=== PATIENT | female | born 1940 | race Caucasian/White ===

== ENCOUNTER → 2018-01-04 | Outpatient (CLI) | payer OTHER ==
[~2018-01-04] MED LIST: ASPI-1005 PO; ASPI-1197 PO; ATOR20TA65 PO; BIOTIN PO; CHOL200016 PO; CHOL400T33 PO; CILO100T PO; CINN500C PO; CLOP75TA14 PO; FISH1CAP27 PO; FOLI-74 PO; GARL5000 PO; GLIM2TAB3 PO; LEVO25TA54 PO; LISI-617 PO; METO-408 PO; RANO500T2 PO; REGADENOSON 0.4 MG/5 ML PF SYG IVP SCH; SIMV20TA6 PO; VITA150T PO
== END | disposition home or self-care (01) ==
LOC: SHCH 08:47
PROVIDERS: ATTEND Internal Medicine Cardiovascular Disease
DX: I51.0 Cardiac septal defect, acquired (principal); I10 Essential (primary) hypertension; R01.1 Cardiac murmur, unspecified
CPT/HCPCS: 78452; 93017; 96374; A9500 ×2; J2785

== ENCOUNTER → 2018-01-10 | Outpatient (CLI) | payer OTHER ==
[~2018-01-10] MED LIST changes: -REGADENOSON 0.4 MG/5 ML PF SYG IVP SCH
== END | disposition home or self-care (01) ==
LOC: SHCH 09:23
PROVIDERS: ATTEND Internal Medicine Cardiovascular Disease
DX: I25.10 Atherosclerotic heart disease of native coronary artery without angina pectoris (principal); I10 Essential (primary) hypertension; Z95.1 Presence of aortocoronary bypass graft
CPT/HCPCS: 93306

== ENCOUNTER → 2018-02-13 | Outpatient (CLI) | payer OTHER ==
[~2018-02-13] MED LIST changes: +ISOVUE-370 50ML VIAL IV ONE
== END | disposition home or self-care (01) ==
LOC: RAH 12:18
PROVIDERS: ATTEND Internal Medicine
DX: H49.22 Sixth [abducent] nerve palsy, left eye (principal)
CPT/HCPCS: 70470; Q9967

== ENCOUNTER 2018-03-01 05:44 | Observation (INO) | payer OTHER ==
[2018-02-27 11:40] VITALS: BP 183/84
[2018-02-27 11:44] LABS: BASOPHILS % (AUTO) 0.8 % (0.0-5.0); EOSINOPHILS % (AUTO) 1.4 % (0.0-8.0); HEMATOCRIT 36.8 % (36-48); LYMPHOCYTES % (AUTO) 28.4 % (21.0-51.0); MEAN CORPUSCULAR HEMOGLOBIN 31.5 pg (27.0-33.0); MEAN CORPUSCULAR HGB CONC 34.5 g/dL (32.0-36.0); MEAN CORPUSCULAR VOLUME 91.3 fL (79-99); MONOCYTES % (AUTO) 7.8 % (3.0-13.0); NEUTROPHILS % (AUTO) 61.6 % (40.0-77.0); PLATELET COUNT (AUTO) 195 K/uL (130-400); RED BLOOD CELL COUNT(AUTO) 4.03 MIL/uL (4.00-5.50); RED CELL DISTRIBUTION WIDTH 13.5 % (11.0-15.5); WHITE BLOOD COUNT (AUTO) 5.6 K/uL (4.8-10.8)
[2018-02-27 11:51] LABS: POTASSIUM 4.7 mmol/L (3.5-5.1)
[2018-02-27 11:55] LABS: INR 0.97 (0.85-1.15); PARTIAL THROMBOPLASTIN TIME 26.1 SEC (26.3-35.5); PROTHROMBIN TIME 10.2 SEC (9.6-11.6)
[2018-02-27 12:43] LABS: APPEARANCE,URINE Turbid (CLEAR); BILIRUBIN,URINE Negative (NEGATIVE); COLOR,URINE Yellow (YELLOW); GLUCOSE, URINE (UA) Negative (NEGATIVE); KETONES,URINE Negative (NEGATIVE); LEUKOCYTE ESTERASE ,URINE Large (NEGATIVE); NITRATE,URINE Negative (NEGATIVE); OCCULT BLOOD,URINE Small (NEGATIVE); PROTEIN,URINE Negative (NEGATIVE); UROBILINOGEN,URINE 0.2 mg/dL (0.2-1.0)
[2018-02-27 12:50] LABS: BACTERIA,URINE Many /HPF (None Seen); RBC,URINE 0-1 /HPF (0-1); SQUAMOUS EPITHELIAL CELL,UR 0-2 /HPF (0-2); WBC,URINE TNTC /HPF (0-1)
[2018-03-01] VITALS (11 sets, daily range): BP systolic 91–192; BP diastolic 45–94
[~2018-03-01] VITALS: Ht 154.9 cm; Wt 64.9 kg
[~2018-03-01 05:44] MED LIST changes: -ASPI-1005 PO; -CHOL400T33 PO; -CILO100T PO; -CLOP75TA14 PO; -FOLI-74 PO; -GARL5000 PO; -GLIM2TAB3 PO; -ISOVUE-370 50ML VIAL IV ONE; -LEVO25TA54 PO; -METO-408 PO; -RANO500T2 PO; -SIMV20TA6 PO
[2018-03-01] MEDS ORDERED: LIDOCAINE HCL-MPF 2% 5ML VIAL ONE (07:10)
[2018-03-01] MEDS ORDERED: IOHEXOL 350 MG/ML 100ML INFUS..BTL IV ONE ×2 (07:10→08:19)
[2018-03-01] MEDS ORDERED: SODIUM BICARB 50MEQ 50ML VIAL ONE (07:10)
[2018-03-01] MEDS ORDERED: IOHEXOL-350 50ML VIAL IV ONE (07:10)
[2018-03-01] MEDS ORDERED: HEPARIN SODIUM 1000UNIT/ML 10ML VIAL ONE (07:10)
[2018-03-01] MEDS ORDERED: NITROGLYCERIN 5 MG/ML 10 ML VIAL IV ONE (07:10)
[2018-03-01] MEDS ORDERED: MIDAZOLAM HCL 1 MG/ML 2ML VIAL ONE ×2 (07:25→08:21)
[2018-03-01] MEDS ORDERED: MEPERIDINE-PF 25 MG/ML SYG ONE ×2 (07:25→08:21)
[2018-03-01] MEDS ORDERED: SODIUM CHLORIDE 0.9% 1000ML 1,000 ML IV SCH (08:00)
[2018-03-01] MEDS ORDERED: CLOPIDOGREL BISULFATE 300 MG TAB ONE (09:13)
[2018-03-01] MEDS ORDERED: ASPIRIN 325MG EC TAB 325 MG TABLET.DR PO ONE (09:13)
[2018-03-01] MEDS: SODIUM CHLORIDE 0.9% 1000ML 1,000 ML IV SCH ×2 (09:17→23:28)
[2018-03-01] MEDS ORDERED: CLOP75TA14 PO (09:23)
[2018-03-01] MEDS ORDERED: ONDANSETRON HCL 4 MG/2 ML VIAL IVP PRN (09:30)
[2018-03-01] MEDS ORDERED: ACETAMINOPHEN-CODEINE 300/30MG TAB PO PRN ×2 (09:30)
[2018-03-01] MEDS ORDERED: TEMAZEPAM 30 MG CAP PO PRN (09:30)
[2018-03-01] MEDS ORDERED: CLOPIDOGREL BISULFATE 300 MG TAB PO SCH (09:30)
[2018-03-01] MEDS ORDERED: ALPRAZOLAM 0.5 MG TABLET ONE (09:59)
[2018-03-01] MEDS ORDERED: ALPRAZOLAM 0.5 MG TABLET PO PRN (10:00)
[2018-03-02 03:53] VITALS: BP 115/53
[2018-03-02 04:21] LABS: CREATININE 0.9 mg/dL (0.5-1.5); POTASSIUM 4.5 mmol/L (3.5-5.1)
[2018-03-02 04:39] LABS: MEAN CORPUSCULAR HEMOGLOBIN 32.5 pg (27.0-33.0); MEAN CORPUSCULAR HGB CONC 35.3 g/dL (32.0-36.0); MEAN CORPUSCULAR VOLUME 91.9 fL (79-99); PLATELET COUNT (AUTO) 137 K/uL (130-400); RED BLOOD CELL COUNT(AUTO) 2.42 MIL/uL (4.00-5.50); RED CELL DISTRIBUTION WIDTH 13.3 % (11.0-15.5); WHITE BLOOD COUNT (AUTO) 6.5 K/uL (4.8-10.8)
[2018-03-02 04:40] LABS: HEMATOCRIT 22.2 % (36-48)
[2018-03-02] MEDS: SODIUM CHLORIDE 0.9% 1000ML 1,000 ML IV SCH (05:17)
[2018-03-02 07:00] VITALS: BP 123/53
[2018-03-02] MEDS: BIOTIN 500 MG PO SCH (09:00)
[2018-03-02] MEDS: CINNAMON 1000 MG PO SCH (09:00)
[2018-03-02] MEDS: **HM** VIT D3 2000 UNITS PO SCH (09:00)
[2018-03-02] MEDS: ASPIRIN 81MG TAB.CHEW PO SCH (10:46)
[2018-03-02] MEDS: FISH OIL 1000 MG/CAP PO SCH (10:46)
[2018-03-02] MEDS: ATORVASTATIN CALCIUM 20 MG TABLET PO SCH (10:46)
[2018-03-02] MEDS: VITAMIN B COMPLEX 1 CAPSULE PO SCH (10:46)
[2018-03-02] MEDS: CLOPIDOGREL BISULFATE 75 MG TAB PO SCH (10:47)
[2018-03-02] MEDS: PANTOPRAZOLE SODIUM 40 MG TABLET.DR PO SCH (10:47)
[2018-03-02] MEDS: LISINOPRIL 5 MG TABLET PO SCH (10:47)
[2018-03-02 11:00] VITALS: BP 138/55
[2018-03-02 16:00] VITALS: BP 147/66
[2018-03-02 16:16] LABS: HEMATOCRIT 23.2 % (36-48)
[2018-03-02] MEDS ORDERED: DIATR MEGLU/DIATRIZOATE SODIUM 30 ML BOTTLE ONE (16:44)
[2018-03-02] MEDS ORDERED: IOHEXOL-350 75 ML VIAL IV ONE (18:56)
[2018-03-02] MEDS ORDERED: CEFTRIAXONE 1GM/D5W 50ML 50 ML IV SCH (19:45)
[2018-03-02 19:46] VITALS: BP_SYST 79
[2018-03-02 20:00] VITALS: BP 146/70
[2018-03-02] MEDS ORDERED: CEFTRIAXONE SODIUM 1 GM IVP SCH (20:00)
[2018-03-02] MEDS: INSULIN HUMULIN R 100 UNIT/ML 3ML SQ SCH (23:44)
[2018-03-03] VITALS: BP 118/51
[2018-03-03 04:00] VITALS: BP 130/57
[2018-03-03 04:08] LABS: BASOPHILS % (AUTO) 0.7 % (0.0-5.0); EOSINOPHILS % (AUTO) 1.2 % (0.0-8.0); HEMATOCRIT 21.5 % (36-48); LYMPHOCYTES % (AUTO) 20.4 % (21.0-51.0); MEAN CORPUSCULAR HEMOGLOBIN 31.7 pg (27.0-33.0); MEAN CORPUSCULAR HGB CONC 34.9 g/dL (32.0-36.0); MEAN CORPUSCULAR VOLUME 90.9 fL (79-99); MONOCYTES % (AUTO) 12.2 % (3.0-13.0); NEUTROPHILS % (AUTO) 65.5 % (40.0-77.0); PLATELET COUNT (AUTO) 132 K/uL (130-400); RED BLOOD CELL COUNT(AUTO) 2.37 MIL/uL (4.00-5.50); RED CELL DISTRIBUTION WIDTH 13.4 % (11.0-15.5); WHITE BLOOD COUNT (AUTO) 6.7 K/uL (4.8-10.8)
[2018-03-03 04:29] LABS: CREATININE 0.9 mg/dL (0.5-1.5); POTASSIUM 4.2 mmol/L (3.5-5.1)
[2018-03-03] MEDS: INSULIN HUMULIN R 100 UNIT/ML 3ML SQ SCH ×2 (06:12→12:19)
[2018-03-03 07:00] VITALS: BP 107/58
[2018-03-03] MEDS ORDERED: RANO500T2 PO (07:07)
[2018-03-03] MEDS: **HM** VIT D3 2000 UNITS PO SCH (09:00)
[2018-03-03] MEDS: BIOTIN 500 MG PO SCH (09:00)
[2018-03-03] MEDS: CINNAMON 1000 MG PO SCH (09:00)
[2018-03-03] MEDS: PANTOPRAZOLE SODIUM 40 MG TABLET.DR PO SCH (09:37)
[2018-03-03] MEDS: VITAMIN B COMPLEX 1 CAPSULE PO SCH (09:37)
[2018-03-03] MEDS: FISH OIL 1000 MG/CAP PO SCH (09:37)
[2018-03-03] MEDS: ASPIRIN 81MG TAB.CHEW PO SCH (09:37)
[2018-03-03] MEDS: LISINOPRIL 5 MG TABLET PO SCH (09:37)
[2018-03-03] MEDS: ATORVASTATIN CALCIUM 20 MG TABLET PO SCH (09:37)
[2018-03-03] MEDS: CLOPIDOGREL BISULFATE 75 MG TAB PO SCH (09:37)
[2018-03-03] MEDS ORDERED: ACETAMINOPHEN 325 MG TAB PO PRN (10:45)
[2018-03-03 11:00] VITALS: BP 137/62
== END 2018-03-03 13:11 | disposition home or self-care (01) ==
LOC: DAH 05:44 → DAHIP 05:45 → DAH 05:45 → 2AH 11:28
PROVIDERS: ADMIT Internal Medicine Cardiovascular Disease; ATTEND Internal Medicine Cardiovascular Disease
DX: I25.119 Atherosclerotic heart disease of native coronary artery with unspecified angina pectoris (principal); E03.9 Hypothyroidism, unspecified; E11.9 Type 2 diabetes mellitus without complications; E78.5 Hyperlipidemia, unspecified; I10 Essential (primary) hypertension; I65.21 Occlusion and stenosis of right carotid artery; I95.1 Orthostatic hypotension; I95.81 Postprocedural hypotension; N39.0 Urinary tract infection, site not specified; Z82.49 Family history of ischemic heart disease and other diseases of the circulatory system; Z95.1 Presence of aortocoronary bypass graft; D64.9 Anemia, unspecified
CPT/HCPCS: 36415 ×4; 71045; 74178; 80048 ×3; 80061; 81001; 82948 ×6; 85014; 85018; 85025 ×2; 85027; 85347 ×2; 85610; 85730; 93005 ×2; 93459; 96372; 96374; A4218; A4351; A4606; C1725; C1760; C1769; C1874 ×2; C1887; C1894; C9600; C9601; G0378 ×55; J0696; J1644 ×2; J1815 ×2; J2175 ×2; J2250 ×2; J3490 ×3; J7030 ×2; Q9963; Q9965 ×2; Q9967 ×4; 99156; 99157

== ENCOUNTER → 2019-03-01 | Outpatient (CLI) | payer OTHER ==
[~2019-03-01] MED LIST changes: +AMLO2.5T2 PO; -BIOTIN PO; +CALCIUM PO; -CHOL200016 PO; +CHOL200059 PO; +IRON PO; -LISI-617 PO; -VITA150T PO
== END | disposition home or self-care (01) ==
LOC: SHCH 10:00
PROVIDERS: ATTEND Internal Medicine Cardiovascular Disease
DX: I65.23 Occlusion and stenosis of bilateral carotid arteries (principal)
CPT/HCPCS: 93880

== ENCOUNTER → 2019-03-04 | Outpatient (CLI) | payer OTHER ==
[~2019-03-04] VITALS: Ht 154.9 cm; Wt 65.8 kg
[~2019-03-04] MED LIST changes: +REGADENOSON 0.4 MG/5 ML PF SYG IVP SCH
== END | disposition home or self-care (01) ==
LOC: SHCH 08:00
PROVIDERS: ATTEND Internal Medicine Cardiovascular Disease
DX: I10 Essential (primary) hypertension (principal); R07.89 Other chest pain
CPT/HCPCS: 78452; 93017; 96374; A9500 ×2; J2785

== ENCOUNTER → 2019-05-17 | Outpatient (CLI) | payer OTHER ==
[~2019-05-17] MED LIST changes: -AMLO2.5T2 PO; +AMLO5TAB9 PO; +BIOT5000 PO; -CALCIUM PO; -REGADENOSON 0.4 MG/5 ML PF SYG IVP SCH; +[UNRECOGNIZED DRUG - OTHER] PO
== END | disposition home or self-care (01) ==
LOC: OIH 10:39
PROVIDERS: ATTEND Neurological Surgery
DX: Z48.89 Encounter for other specified surgical aftercare (principal); M48.061 Spinal stenosis, lumbar region without neurogenic claudication; M51.36 Other intervertebral disc degeneration, lumbar region
CPT/HCPCS: 72100

== ENCOUNTER 2019-06-03 13:40 | Emergency (ER) | payer OTHER ==
[2019-06-03] MEDS ORDERED: ASPIRIN 325 MG TABLET ONE (14:11)
[2019-06-03 14:13] LABS: BASOPHILS % (AUTO) 1.1 % (0.0-5.0); HEMATOCRIT 33.8 % (36-48); LYMPHOCYTES % (AUTO) 16.6 % (21.0-51.0); MEAN CORPUSCULAR HEMOGLOBIN 31.5 pg (27.0-33.0); MEAN CORPUSCULAR HGB CONC 34.9 g/dL (32.0-36.0); MEAN CORPUSCULAR VOLUME 90.2 fL (79-99); MONOCYTES % (AUTO) 5.5 % (3.0-13.0); NEUTROPHILS % (AUTO) 75.8 % (40.0-77.0); NUCLEATED RED BLOOD CELLS 0.1 % (0.0-0.19); PLATELET COUNT (AUTO) 206 K/uL (130-400); RED BLOOD CELL COUNT(AUTO) 3.75 MIL/uL (4.00-5.50); RED CELL DISTRIBUTION WIDTH 13.6 % (11.0-15.5); WHITE BLOOD COUNT (AUTO) 7.8 K/uL (4.8-10.8)
[2019-06-03 14:22] LABS: CREATININE 0.8 mg/dL (0.5-1.5); POTASSIUM 4.1 mmol/L (3.5-5.1)
[2019-06-03 14:25] LABS: INR 0.97 (0.85-1.15); PROTHROMBIN TIME 10.2 SEC (9.6-11.6)
[2019-06-03 14:27] LABS: ALBUMIN 3.8 g/dL (3.5-5.0); BILIRUBIN,TOTAL 0.4 mg/dL (0.2-1.0); TOTAL PROTEIN, SERUM 7.1 g/dL (6.0-8.3)
[2019-06-03] MEDS ORDERED: ALPRAZOLAM 0.25 MG TABLET ONE (16:31)
[2019-06-04] MEDS ORDERED: METO-408 PO (20:02)
[2019-06-04] MEDS ORDERED: TICA90TA PO (20:02)
== END 2019-06-03 17:49 | disposition home or self-care (01) ==
LOC: EDH 13:40
DX: R07.89 Other chest pain (principal); I10 Essential (primary) hypertension; E03.9 Hypothyroidism, unspecified; E78.5 Hyperlipidemia, unspecified; E11.9 Type 2 diabetes mellitus without complications; I25.10 Atherosclerotic heart disease of native coronary artery without angina pectoris; Z95.1 Presence of aortocoronary bypass graft; Z87.891 Personal history of nicotine dependence; Z98.890 Other specified postprocedural states; Z79.899 Other long term (current) drug therapy
CPT/HCPCS: 36415; 71045; 80053; 82550; 83880; 84484; 85025; 85610; 85730; 93005

== ENCOUNTER 2019-06-04 08:23 | Inpatient (IN) | payer OTHER ==
[~2019-06-04] VITALS: Ht 154.9 cm; Wt 65.0 kg
[2019-06-04 08:45] LABS: BASOPHILS % (AUTO) 0.5 % (0.0-5.0); EOSINOPHILS % (AUTO) 0.8 % (0.0-8.0); HEMATOCRIT 36.3 % (36-48); LYMPHOCYTES % (AUTO) 19.4 % (21.0-51.0); MEAN CORPUSCULAR HEMOGLOBIN 31.8 pg (27.0-33.0); MEAN CORPUSCULAR HGB CONC 34.8 g/dL (32.0-36.0); MEAN CORPUSCULAR VOLUME 91.6 fL (79-99); MONOCYTES % (AUTO) 6.8 % (3.0-13.0); NEUTROPHILS % (AUTO) 72.5 % (40.0-77.0); PLATELET COUNT (AUTO) 216 K/uL (130-400); RED BLOOD CELL COUNT(AUTO) 3.96 MIL/uL (4.00-5.50); WHITE BLOOD COUNT (AUTO) 8.9 K/uL (4.8-10.8)
[2019-06-04 08:47] LABS: CREATININE 0.8 mg/dL (0.5-1.5); POTASSIUM 3.7 mmol/L (3.5-5.1)
[2019-06-04 08:54] LABS: ALBUMIN 3.9 g/dL (3.5-5.0); BILIRUBIN,TOTAL 0.4 mg/dL (0.2-1.0); INR 0.98 (0.85-1.15); PARTIAL THROMBOPLASTIN TIME 25.4 SEC (26.3-35.5); PROTHROMBIN TIME 10.3 SEC (9.6-11.6); TOTAL PROTEIN, SERUM 7.2 g/dL (6.0-8.3)
[2019-06-04] MEDS ORDERED: LORAZEPAM 2 MG/ML 1 ML VIAL ONE (09:09)
[2019-06-04 09:35] LABS: APPEARANCE,URINE Clear (CLEAR); BILIRUBIN,URINE Negative (NEGATIVE); COLOR,URINE Yellow (YELLOW); GLUCOSE, URINE (UA) Negative (NEGATIVE); KETONES,URINE Negative (NEGATIVE); LEUKOCYTE ESTERASE ,URINE Negative (NEGATIVE); NITRATE,URINE Negative (NEGATIVE); OCCULT BLOOD,URINE Negative (NEGATIVE); PROTEIN,URINE Negative (NEGATIVE); UROBILINOGEN,URINE 0.2 mg/dL (0.2-1.0)
[2019-06-04 09:42] LABS: AMPHET/METH SCREEN,URINE NEGATIVE (NEGATIVE); BARBITURATE SCREEN, URINE NEGATIVE (NEGATIVE); BENZODIAZEPINES SCREEN,URINE NEGATIVE (NEGATIVE); CANNABINOID SCREEN,URINE NEGATIVE (NEGATIVE); COCAINE SCREEN,URINE NEGATIVE (NEGATIVE); OPIATE SCREEN,URINE NEGATIVE (NEGATIVE); PHENCYCLIDINE SCREEN,URINE NEGATIVE (NEGATIVE)
[2019-06-04] MEDS ORDERED: ACETAMINOPHEN 325 MG TAB ONE (14:11)
[2019-06-04] MEDS: SODIUM CHLORIDE 0.9% 1000ML 1,000 ML IV SCH (14:15)
[2019-06-04] MEDS ORDERED: IPRATROPIUM/ALBUTEROL SULFATE 3 ML SOLUTION IH ONE (15:00)
[2019-06-04] MEDS ORDERED: SODIUM CHLORIDE 0.9% 1000ML 1,000 ML IV ONE (15:12)
[2019-06-04] MEDS ORDERED: LORAZEPAM 0.5 MG TABLET PO PRN (15:15)
[2019-06-04] MEDS ORDERED: ACETAMINOPHEN 325 MG TAB PO PRN (15:15)
[2019-06-04] MEDS ORDERED: ONDANSETRON HCL 4 MG/2 ML VIAL IVP PRN (15:15)
[2019-06-04] MEDS ORDERED: LORAZEPAM 0.5 MG TABLET PO SCH (15:15)
[2019-06-04 16:43] VITALS: BP 117/64
[2019-06-04 19:22] LABS: CREATINE KINASE, TOTAL 39 U/L (21-232); MYOGLOBIN 62 ng/mL (10-92); TROPONIN I < 0.04 ng/mL (0.00-0.06)
[2019-06-04 19:32] VITALS: BP 140/61
[2019-06-04] MEDS ORDERED: METO-408 PO (20:02)
[2019-06-04] MEDS ORDERED: TICA90TA PO (20:02)
--- NOTE | 2019-06-04 20:05 | NUR ---
ADMISSION NOTE Received patient from ER at 1645, in no distress, accompanied by her fiance and friend. Admission and orientation done. Home medications entered. Dr. Bruno came for evaluation. Ordered prozac 10mg PO daily in AM. Patient receiving NS at 75mL/hr to right hand; site healthy and patent.
[2019-06-04] MEDS: IPRATROPIUM/ALBUTEROL SULFATE 3 ML SOLUTION IH SCH ×2 (20:21→23:10)
[2019-06-04] MEDS ORDERED: SERTRALINE HCL 50 MG TABLET PO SCH (21:00)
--- NOTE | 2019-06-04 21:35 | NUR ---
MEDS AWAKENED PT FOR DUE MEDS. NOTED TO HAVE SLURRED SPEECH BUT IS COHERENT. SHIFT ASSESSMENT DONE, PLEASE REFER TO CHART. RE-POSITIONED IN BED WITH HOB ELEVATED. MEDICATED PT AND NOTED TO HAVE COUGHING WHEN DRINKING WATER. PT CLAIMS SHE IS SWALLOWING FINE THOUGH. KEPT RESTED AND COMFORTABLE. CALL LIGHT WITHIN REACH. WILL MONITOR PT. Addendum: 06/04/19 at 2305 by CHICO RAMOS RN RN Amended: Links added.
[2019-06-04] MEDS: ASPIRIN 325MG EC TAB 325 MG TABLET.DR PO SCH (22:03)
[2019-06-05 00:12] VITALS: BP 122/63
--- NOTE | 2019-06-05 01:48 | NUR ---
ROUNDS PT RESTING WELL, NO DISTRESS NOTED. KEPT RESTED AND COMFORTABLE. CALL LIGHT WITHIN REACH. WILL MONITOR PT.
[2019-06-05] MEDS: SODIUM CHLORIDE 0.9% 1000ML 1,000 ML IV SCH ×4 (02:54→22:19)
[2019-06-05 04:08] VITALS: BP 139/55
--- NOTE | 2019-06-05 05:00 | NUR ---
ROUNDS PT RESTING WELL, DENIES ANY NEEDS AT THIS TIME. NO DISTRESS NOTED. KEPT COMFORTABLE IN BED. FOR MORE CARE.
[2019-06-05 05:48] LABS: CREATININE 0.7 mg/dL (0.5-1.5); POTASSIUM 3.6 mmol/L (3.5-5.1); THYROID STIMULATING HORMONE 3.72 uIU/mL (0.36-3.74)
[2019-06-05] MEDS: IPRATROPIUM/ALBUTEROL SULFATE 3 ML SOLUTION IH SCH ×4 (06:45→23:07)
[2019-06-05 08:00] VITALS: BP 157/56
[2019-06-05] MEDS ORDERED: FLUOXETINE HCL 10 MG CAPSULE PO SCH ×2 (09:00)
[2019-06-05] MEDS: Biotin 5,000 MCG PO SCH (09:00)
[2019-06-05] MEDS: METOPROLOL SUCCINATE 25 MG PO SCH (09:00)
[2019-06-05] MEDS: CINNAMON BARK 1000 MG PO SCH (09:00)
--- NOTE | 2019-06-05 09:58 | NUR ---
DYSPHAGIA EVAL COMPLETED. +S/S OF ASPIRATION WITH THIN AND NECTAR-THICK LIQUIDS. RECOMMEND MECHANICAL SOFT/GROUND, HONEY-THICK LIQUIDS; PILLS CRUSHED WITH APPLESAUCE. RECOMMENDATIONS: 1. SKILLED SPEECH THERAPY TARGETING SWALLOWING RECOMMENDED 2-5XWK. LTG1: Pt WILL TOLERATE LEAST RESTRICTIVE DIET WITH NO OVERT S/S OF ASPIRATION FOR ALL MEALS AND SNACKS. STG1: Pt WILL TOLERATE MECHANICAL SOFT/GROUND, HONEY-THICK LIQUIDS WITH NO OVERT S/S OF ASPIRATION. STG2: Pt WILL COMPLETE PHARYNGEAL STRENGTHENING EXERCISES WITH 80% ACCURACY. STG3: Pt WILL COMPLETE ORAL MOTOR EXERCISES WITH 80% ACCURACY. STG4: Pt WILL TOLERATE THERAPEUTIC TRIALS OF ADVANCED TEXTURE OF MECHANICAL SOFT/CHOPPED, NECTAR-THICK LIQUIDS AND THIN LIQUIDS WITH NO OVERT S/S OF ASPIRATION. STG5: SKILLED EDUCATION Pt/FAMILY/STAFF. Addendum: 06/05/19 at 1004 by COURTNEY YAO, [facility] Amended: Links added.
--- NOTE | 2019-06-05 10:15 | NUR ---
COGNITIVE-LINGUISTIC EVAL COMPLETED. Pt PRESENTS WITH MODERATE-SEVERE MOTOR SPEECH DEFICITS. Pt INTELLIGIBLE AT 50% DURING RUNNING SPEECH IN UNKNOWN CONTEXT. SKILLED SPEECH THERAPY IS RECOMMENDED TARGETING MOTOR SPEECH AND DYSPHAGIA GOALS. RECOMMENDATIONS: 1. SKILLED SPEECH THERAPY RECOMMENDED 3-5XWK TOLERATED BY Pt TARGETING MOTOR SPEECH. LTG1: Pt WILL IMPROVE SPEECH INTELLIGIBILITY TO BE ABLE TO REQUEST WANTS AND NEEDS AND BE UNDERSTOOD WITH 80% ACCURACY. STG1: Pt WILL COMPLETED AMRs/SMRs WITH 80% ACCURACY. SRG2: Pt WILL COMPLETE ORAL MOTOR EXERCISES WITH 80% ACCURACY. STG3: Pt WILL COMPLETE SPEECH CLARITY TECHNIQUES AT THE WORD LEVEL WITH 80% ACCURACY. STG4: Pt WILL COMPLETE SPEECH CLARITY TECHNIQUES AT THE PHRASE LEVEL WITH 80% ACCURACY. STG5: Pt WILL COMPLETE SPEECH CLARITY TECHNIQUES AT THE SENTENCE LEVEL WITH 80% ACCURACY. STG6: SKILLED EDUCATION Pt/FAMILY/STAFF. Addendum: 06/06/19 at 0643 by BRANDT YEAGER Amended: Links added. Addendum: 06/06/19 at [address] ADD G-CODES: G-CODES MOTOR SPEECH: [id number]
[2019-06-05] MEDS: AMLODIPINE BESYLATE 5 MG TAB PO SCH (10:48)
[2019-06-05] MEDS: FAMOTIDINE 20MG TAB 20 MG TAB PO SCH (10:48)
[2019-06-05] MEDS: ASPIRIN 81MG TAB.CHEW PO SCH (10:48)
[2019-06-05] MEDS: ATORVASTATIN CALCIUM 20 MG TABLET PO SCH (10:48)
[2019-06-05] MEDS: TICAGRELOR 90 MG TABLET PO SCH (10:48)
[2019-06-05] MEDS: VITAMIN B COMPLEX 1 CAPSULE PO SCH (10:50)
[2019-06-05] MEDS: FERROUS GLUCONATE 325 MG TABLET PO SCH (10:50)
--- NOTE | 2019-06-05 11:00 | NUR ---
[facility] CM met with pt and cheikh Leong, pt unable to answer questions appropriately at this time, cheikh gave info. Pt is independent prior to last admission, now very weak and w/some confusion, lives at home alone, cheikh lives close stays w/pt almost every day. Denies any equipments/services. Agreeable for placement if necessary for short term rehab. Cheikh ble to assist with transportation and needs as necessary. DC plan to SNF once stable. CM to cont to follow up. Addendum: 06/05/19 at 1648 by INGA NO LVN CM Amended: Links added.
[2019-06-05 12:44] VITALS: BP 127/65
--- NOTE | 2019-06-05 15:35 | NUR ---
CM Note: [facility] pending ins auth and acceptance CM spoke to pt and cheikh Leong, discussed MD recommendations for short term placement rehab, pt and cheikh agreeable, dian signed YADI for [facility]. Faxed order, clinicals, PT, and PAS[facility], confirmation received. Spoke to Vivi will come eval pt, aware dcp possibly tomorrow/once approved. Pt pending ins auth and acceptance. Primary nurse aware. CM to cont to follow up.
[2019-06-05 16:00] VITALS: BP 143/55
[2019-06-05 20:00] VITALS: BP 152/56
[2019-06-05] MEDS: ASPIRIN 325MG EC TAB 325 MG TABLET.DR PO SCH (22:00)
[2019-06-05] MEDS: SIMVASTATIN 20 MG TABLET PO SCH (22:22)
[2019-06-06] VITALS: BP 144/62
--- NOTE | 2019-06-06 00:15 | NUR ---
PHYSICIAN CALLED BACK ORDERED AN IN AND OUT, HYDRALAZINE FOR BP, TYLENOL FOR PAIN. ORDERS PLACED IN [facility]. WILL CONTINUE TO CLOSELY MONITOR THE PATIENT.
[2019-06-06 04:00] VITALS: BP 154/58
[2019-06-06] MEDS: IPRATROPIUM/ALBUTEROL SULFATE 3 ML SOLUTION IH SCH ×4 (07:02→23:34)
[2019-06-06 07:53] VITALS: BP 148/55
[2019-06-06] MEDS: CINNAMON BARK 1000 MG PO SCH (09:00)
[2019-06-06] MEDS: Biotin 5,000 MCG PO SCH (09:00)
[2019-06-06] MEDS: METOPROLOL SUCCINATE 25 MG PO SCH (09:00)
[2019-06-06] MEDS: TICAGRELOR 90 MG TABLET PO SCH (09:58)
[2019-06-06] MEDS: VITAMIN B COMPLEX 1 CAPSULE PO SCH (09:58)
[2019-06-06] MEDS: FERROUS GLUCONATE 325 MG TABLET PO SCH (09:58)
[2019-06-06] MEDS: AMLODIPINE BESYLATE 5 MG TAB PO SCH (09:58)
[2019-06-06] MEDS: FLUOXETINE HCL 20 MG CAPSULE PO SCH (09:58)
[2019-06-06] MEDS: ATORVASTATIN CALCIUM 20 MG TABLET PO SCH (09:58)
[2019-06-06] MEDS: FAMOTIDINE 20MG TAB 20 MG TAB PO SCH (09:58)
[2019-06-06] MEDS: ASPIRIN 81MG TAB.CHEW PO SCH (09:58)
[2019-06-06] MEDS: SODIUM CHLORIDE 0.9% 1000ML 1,000 ML IV SCH (09:59)
[2019-06-06 11:41] VITALS: BP 151/66
--- NOTE | 2019-06-06 11:48 | NUR ---
PAGED PHYSICIAN PATIENT C/O LOWER ABDOMINAL PAIN. BP 160/70, HR 59. PENDING CALL BACK
--- NOTE | 2019-06-06 13:06 | NUR ---
MBSS COMPLETED. SHALLOW TRANSIENT PENETRATION WITH PUREED, PUDDING TEXTURES AND DEEP NON-TRANSIENT PENETRATION WITH HONEY-THICK LIQUIDS VIA CUP SIP. RECOMMEND PUREED TEXTURE AND HONEY-THICK LIQUIDS VIA TSP; PILLS CRUSHED. RECOMMENDATIONS: CONTINUE PLAN OF CARE ESTABLISHED DURING INITIAL EVALUATION. ADDED GOALS: STG1: PT WILL TOLERATE PUREED, HONEY-THICK LIQUIDS VIA TSP WITH NO OVERT S/S OF ASPIRATION. Addendum: 06/06/19 at 1309 by COURTNEY YAO, [facility] Amended: Links added.
[2019-06-06 16:28] VITALS: BP 154/58
--- NOTE | 2019-06-06 16:30 | NUR ---
CM Note: [facility] ins auth Spoke to Rohan sam/Corey Cruz, pt has auth and acceptance. EMS arranged and faxed for today, primary nurse to call [facility] once pt ready to DC. Primary nurse aware. CM to cont to follow up.
[2019-06-06 20:00] VITALS: BP 138/70
[2019-06-06] MEDS: SIMVASTATIN 20 MG TABLET PO SCH (20:59)
[2019-06-07] VITALS (9 sets, daily range): BP systolic 123–164; BP diastolic 56–70
[2019-06-07] MEDS ORDERED: ACETAMINOPHEN 325 MG TAB PO PRN ×2 (00:30→03:45)
[2019-06-07] MEDS ORDERED: HYDRALAZINE HCL 20 MG/ML VIAL IV PRN (00:30)
--- NOTE | 2019-06-07 03:45 | NUR ---
PAGED PHYSICIAN PATIENT C/O OF LOWER ABDOMINAL PAIN AND BACK PAIN WITH A BP OF 164/67. SARA DURAN ORDERED A BROWN TO BE PLACED, COLLECT A UA AND URINE CULTURE.
--- NOTE | 2019-06-07 04:20 | NUR ---
CALLED [facility] TO HAVE PAIN MEDICATION PROFILED. LIANNA SAID HE NEEDS TO REVIEW THE SPARTA ORDERS AND WILL GET TO IT SOON. PATIENT C/O BACK PAIN.
[2019-06-07 04:47] LABS: BASOPHILS % (AUTO) 0.8 % (0.0-5.0); EOSINOPHILS % (AUTO) 1.8 % (0.0-8.0); HEMATOCRIT 32.1 % (36-48); LYMPHOCYTES % (AUTO) 13.2 % (21.0-51.0); MEAN CORPUSCULAR HEMOGLOBIN 31.8 pg (27.0-33.0); MEAN CORPUSCULAR HGB CONC 34.7 g/dL (32.0-36.0); MEAN CORPUSCULAR VOLUME 91.6 fL (79-99); MONOCYTES % (AUTO) 7.7 % (3.0-13.0); NEUTROPHILS % (AUTO) 76.5 % (40.0-77.0); PLATELET COUNT (AUTO) 167 K/uL (130-400); RED BLOOD CELL COUNT(AUTO) 3.51 MIL/uL (4.00-5.50); RED CELL DISTRIBUTION WIDTH 13.9 % (11.0-15.5); WHITE BLOOD COUNT (AUTO) 7.9 K/uL (4.8-10.8)
[2019-06-07 05:08] LABS: CREATININE 0.8 mg/dL (0.5-1.5); MAGNESIUM 1.6 mg/dL (1.80-2.40); PHOSPHORUS 3.5 mg/dL (2.5-4.9); POTASSIUM 3.6 mmol/L (3.5-5.1)
[2019-06-07 05:35] LABS: APPEARANCE,URINE Cloudy (CLEAR); BILIRUBIN,URINE Negative (NEGATIVE); COLOR,URINE Yellow (YELLOW); GLUCOSE, URINE (UA) Negative (NEGATIVE); KETONES,URINE Negative (NEGATIVE); LEUKOCYTE ESTERASE ,URINE Large (NEGATIVE); NITRATE,URINE Negative (NEGATIVE); OCCULT BLOOD,URINE Negative (NEGATIVE); PH,URINE 6.5 (5.0-8.0); PROTEIN,URINE Negative (NEGATIVE)
[2019-06-07 05:55] LABS: BACTERIA,URINE Many /HPF (None Seen); RBC,URINE None Seen /HPF (0-1); SQUAMOUS EPITHELIAL CELL,UR Rare /HPF (0-2)
[2019-06-07] MEDS: IPRATROPIUM/ALBUTEROL SULFATE 3 ML SOLUTION IH SCH ×4 (06:47→23:20)
[2019-06-07] MEDS: VITAMIN B COMPLEX 1 CAPSULE PO SCH (08:36)
[2019-06-07] MEDS: FERROUS GLUCONATE 325 MG TABLET PO SCH (08:36)
[2019-06-07] MEDS: FAMOTIDINE 20MG TAB 20 MG TAB PO SCH (08:36)
[2019-06-07] MEDS: ASPIRIN 81MG TAB.CHEW PO SCH (08:36)
[2019-06-07] MEDS: CINNAMON BARK 1000 MG PO SCH (08:37)
[2019-06-07] MEDS: AMLODIPINE BESYLATE 5 MG TAB PO SCH (08:37)
[2019-06-07] MEDS: SODIUM CHLORIDE 0.9% 1000ML 1,000 ML IV SCH (08:37)
[2019-06-07] MEDS: TICAGRELOR 90 MG TABLET PO SCH (08:37)
[2019-06-07] MEDS: METOPROLOL SUCCINATE 25 MG PO SCH (08:37)
[2019-06-07] MEDS: FLUOXETINE HCL 20 MG CAPSULE PO SCH (08:37)
[2019-06-07] MEDS: ATORVASTATIN CALCIUM 20 MG TABLET PO SCH (08:37)
[2019-06-07] MEDS: Biotin 5,000 MCG PO SCH (08:38)
--- NOTE | 2019-06-07 09:36 | NUR ---
CAMI LARIOS FROM [facility] VISITED WITH PT. POC DISCUSSED. INFORMED CAMI OF URINARY RETENTION AND PENDING URINE CULTURES. NEW ORDERS RECEIVED AND CARRIED OUT.
--- NOTE | 2019-06-07 09:49 | NUR ---
DYSPHAGIA RE-EVALUATION COMPLETED. Pt TOLERATING PUREED, HONEY-THICK LIQUIDS VIA TSP. RECOMMEND CONTINUED DIET AT THIS TIME. RECOMMENDATIONS: 1. CONTINUE PLAN OF CARE ESTABLISHED DURING INITIAL EVALUATION. Addendum: 06/07/19 at 0951 by COURTNEY YAO, [facility] Amended: Links added.
--- NOTE | 2019-06-07 09:54 | NUR ---
SPEECH THERAPY PREFORMED. S: Pt WITH EMOTIONAL BREAKDOWNS DURING THE SESSION. SPACER TYPE BAR AND SEGMENT REASSURED Pt AND ENCOURAGED HER. Pt PARTICIPATED IN ALL ACTIVITIES WITH CUES AND MAX COAXING. O: Pt CURRENTLY TARGETING SWALLOWING AND SPEECH GOALS. RESULTS ARE FOLLOWS: STG1: Pt WILL COMPLETED AMRs/SMRs WITH 80% ACCURACY: 40% ACCURACY WITH MAX CUES STG2: Pt WILL COMPLETE ORAL MOTOR EXERCISES WITH 80% ACCURACY: 30% ACCURACY WITH MAX CUES STG3: Pt WILL COMPLETE SPEECH CLARITY TECHNIQUES AT THE WORD LEVEL WITH 80% ACCURACY:70% ACCURACY WITH MAX CUES STG4: Pt WILL COMPLETE SPEECH CLARITY TECHNIQUES AT THE PHRASE LEVEL WITH 80% ACCURACY: 50% ACCURACY GIVEN MAX CUES DYSPHAGIA GOALS: STG1: Pt WILL TOLERATE PUREED, HONEY-THICK LIQUIDS WITH NO OVERT S/S OF ASPIRATION: NO OVERT S/S OF ASPIRATION PRESENT DURING THERAPEUTIC TRIALS. CUES PROVIDED FOR RE-SWALLOW. STG2: Pt WILL COMPLETE PHARYNGEAL STRENGTHENING EXERCISES WITH 80% ACCURACY:30% ACCURACY GIVEN MAX CUES STG4: Pt WILL TOLERATE THERAPEUTIC TRIALS OF ADVANCED TEXTURE OF MECHANICAL SOFT/CHOPPED, NECTAR-THICK LIQUIDS AND THIN LIQUIDS WITH NO OVERT S/S OF ASPIRATION: NOT TARGETED. A: Pt WITH IMPROVED SPEECH CLARITY USING TECHNIQUES. Pt REQUIRES ENCOURAGEMENT TO COMPLETE EXERCISES. P: RECOMMEND CONTINUED SKILLED SPEECH THERAPY TARGETING SWALLOWING AND SPEECH GOALS. SPACER TYPE BAR AND SEGMENT COORDINATED WITH NURSE CALVILLO AT THIS TIME. Addendum: 06/07/19 at 0959 by COURTNEY YAO [facility] Amended: Links added.
[2019-06-07] MEDS: CEFTRIAXONE SODIUM 1 GM IVP SCH (11:28)
--- NOTE | 2019-06-07 14:25 | NUR ---
[facility] CONSULT PATIENT ASSESSED REQUESTED: NO OPEN WOUNDS PRESENT AT THIS TIME. [facility] RECOMMENDATIONS NOT REQUIRED. Addendum: 06/07/19 at 1428 by SAUL ROB LVN LVN W Amended: Links added.
[2019-06-07] MEDS: SIMVASTATIN 20 MG TABLET PO SCH (20:56)
[2019-06-08] MEDS: SODIUM CHLORIDE 0.9% 1000ML 1,000 ML IV SCH ×2 (01:55→12:25)
[2019-06-08 04:00] VITALS: BP 150/89
[2019-06-08 05:02] LABS: HEMATOCRIT 29.7 % (36-48); MEAN CORPUSCULAR HEMOGLOBIN 32.8 pg (27.0-33.0); MEAN CORPUSCULAR HGB CONC 35.6 g/dL (32.0-36.0); MEAN CORPUSCULAR VOLUME 92.1 fL (79-99); NUCLEATED RED BLOOD CELLS 0.1 % (0.0-0.19); PLATELET COUNT (AUTO) 150 K/uL (130-400); RED BLOOD CELL COUNT(AUTO) 3.23 MIL/uL (4.00-5.50); RED CELL DISTRIBUTION WIDTH 13.6 % (11.0-15.5); WHITE BLOOD COUNT (AUTO) 6.9 K/uL (4.8-10.8)
[2019-06-08 05:18] LABS: ALBUMIN 2.9 g/dL (3.5-5.0); BILIRUBIN,TOTAL 0.4 mg/dL (0.2-1.0); CREATININE 0.7 mg/dL (0.5-1.5); POTASSIUM 3.3 mmol/L (3.5-5.1); TOTAL PROTEIN, SERUM 5.8 g/dL (6.0-8.3)
[2019-06-08 05:26] LABS: BAND NEUTROPHILS % (MANUAL) 8 % (0-2); BASOPHILS % (MANUAL) 1 % (0-2); LYMPHOCYTES % (MANUAL) 10 % (22-44); MONOCYTES % (MANUAL) 5 % (2-9); SEGMENTED NEUTROPHILS % 76 % (40-70)
[2019-06-08 05:28] LABS: MAN.DIFF COMMENT-IMPRESSION MANUAL DIFFERENTIAL
[2019-06-08 05:29] LABS: PLATELET MORPHOLOGY COMMENT ADEQUATE
[2019-06-08] MEDS: IPRATROPIUM/ALBUTEROL SULFATE 3 ML SOLUTION IH SCH ×4 (06:17→23:26)
[2019-06-08 08:09] VITALS: BP 147/57
[2019-06-08] MEDS: FLUOXETINE HCL 20 MG CAPSULE PO SCH (08:55)
[2019-06-08] MEDS: VITAMIN B COMPLEX 1 CAPSULE PO SCH (08:55)
[2019-06-08] MEDS: ASPIRIN 81MG TAB.CHEW PO SCH (08:55)
[2019-06-08] MEDS: FAMOTIDINE 20MG TAB 20 MG TAB PO SCH (08:55)
[2019-06-08] MEDS: TICAGRELOR 90 MG TABLET PO SCH (08:55)
[2019-06-08] MEDS: ATORVASTATIN CALCIUM 20 MG TABLET PO SCH (08:55)
[2019-06-08] MEDS: FERROUS GLUCONATE 325 MG TABLET PO SCH (08:55)
[2019-06-08] MEDS: AMLODIPINE BESYLATE 5 MG TAB PO SCH (08:55)
[2019-06-08] MEDS: METOPROLOL SUCCINATE 25 MG PO SCH (08:56)
[2019-06-08] MEDS: Biotin 5,000 MCG PO SCH (08:56)
[2019-06-08] MEDS: CINNAMON BARK 1000 MG PO SCH (08:56)
[2019-06-08] MEDS: CEFTRIAXONE SODIUM 1 GM IVP SCH (11:10)
[2019-06-08 12:14] VITALS: BP 148/74
--- NOTE | 2019-06-08 12:50 | NUR ---
[facility] CATHETER D/C PER COURSE DEVELOPER LARIOS ORDERS. PATIENT PENDING TO VOID.
[2019-06-08] MEDS ORDERED: MAGNESIUM 2GM PREMIX 50ML 50 ML IV PRN (14:30)
[2019-06-08 15:34] VITALS: BP 146/60
--- NOTE | 2019-06-08 16:30 | NUR ---
PATIENT VOIDED TWO TIMES.
[2019-06-08] MEDS: POTASSIUM CHLORIDE 20MEQ/100ML 100 ML IV PRN ×2 (19:46→22:57)
[2019-06-08] MEDS: LIDOCAINE HCL-MPF 1% 2ML VIAL IV PRN ×2 (20:00→22:57)
[2019-06-08] MEDS: SIMVASTATIN 20 MG TABLET PO SCH (20:00)
[2019-06-08 20:31] VITALS: BP 152/68
[2019-06-08 23:47] VITALS: BP 153/63
[2019-06-09 04:18] VITALS: BP 137/58
[2019-06-09] MEDS: SODIUM CHLORIDE 0.9% 1000ML 1,000 ML IV SCH (06:25)
[2019-06-09] MEDS: IPRATROPIUM/ALBUTEROL SULFATE 3 ML SOLUTION IH SCH ×2 (06:42→11:23)
[2019-06-09 08:00] VITALS: BP 142/78
[2019-06-09 08:15] LABS: CREATININE 0.6 mg/dL (0.5-1.5); POTASSIUM 3.5 mmol/L (3.5-5.1)
[2019-06-09] MEDS: FERROUS GLUCONATE 325 MG TABLET PO SCH (08:57)
[2019-06-09] MEDS: TICAGRELOR 90 MG TABLET PO SCH (08:57)
[2019-06-09] MEDS: FAMOTIDINE 20MG TAB 20 MG TAB PO SCH (08:58)
[2019-06-09] MEDS: VITAMIN B COMPLEX 1 CAPSULE PO SCH (08:58)
[2019-06-09] MEDS: FLUOXETINE HCL 20 MG CAPSULE PO SCH (08:58)
[2019-06-09] MEDS: AMLODIPINE BESYLATE 5 MG TAB PO SCH (08:59)
[2019-06-09] MEDS: ATORVASTATIN CALCIUM 20 MG TABLET PO SCH (08:59)
[2019-06-09] MEDS: CEFTRIAXONE SODIUM 1 GM IVP SCH (08:59)
[2019-06-09] MEDS: ASPIRIN 81MG TAB.CHEW PO SCH (08:59)
[2019-06-09] MEDS: Biotin 5,000 MCG PO SCH (09:00)
[2019-06-09] MEDS: METOPROLOL SUCCINATE 25 MG PO SCH (09:00)
[2019-06-09] MEDS: CINNAMON BARK 1000 MG PO SCH (09:00)
--- NOTE | 2019-06-09 10:06 | NUR ---
CRITICAL RESULTS CALLED TO CAMI BOWMAN, FROM [facility]. NO NEW ORDERS RECEIVED.
[2019-06-09] MEDS ORDERED: MEROPENEM 1 GM VIAL IVP SCH (11:00)
[2019-06-09] MEDS ORDERED: FUROSEMIDE 10 MG/ML 4ML VIAL IV SCH (11:00)
--- NOTE | 2019-06-09 11:00 | NUR ---
Corey Cruz: Spoke cecy Elise from [facility] this am, she confirms that ins auth is still good for today. Gosia informed that plan was for discharge today. She mentions she will inform team. Primary nurse-Carlene informed.
[2019-06-09 12:15] VITALS: BP 152/66
--- NOTE | 2019-06-09 13:15 | NUR ---
PATIENT AND FIANCE GIVEN DISCHARGE INSTRUCTIONS AND EDUCATION ON FOLLOW UP APPOINTMENTS AND NEW PRESCRIBED MEDICATIONS. PATIENT VERBALIZED UNDERSTANDING OF ALL EDUCATION GIVEN VIA TEACH BACK. NO CONCERNS VOICED. REPORT CALLED TO CAROLEE HERNANDEZ AT [facility]. ALL QUESTIONS ANSWERED ACCORDINGLY. PATIENT LEFT WITH 20 G RIGHT HAND IV SITE TO BE USED AT [facility] FOR ANTIBIOTIC THERAPY. EMS HERE TO TRANSFER PATIENT. NO DISTRESS NOTED UPON DISCHARGE. ALL BELONGINGS TAKEN WITH.
== END 2019-06-09 13:20 | DRG 65 ==
LOC: EDH 08:23 → OBSVTOIN 13:51 → EDHIP 13:51 → 3AH 16:21
PROVIDERS: ADMIT Internal Medicine; ATTEND Internal Medicine
DX: I63.9 Cerebral infarction, unspecified (principal); N39.0 Urinary tract infection, site not specified; R47.81 Slurred speech; N39.3 Stress incontinence (female) (male); F43.22 Adjustment disorder with anxiety; F32.9 Major depressive disorder, single episode, unspecified; E78.5 Hyperlipidemia, unspecified; I10 Essential (primary) hypertension; I25.10 Atherosclerotic heart disease of native coronary artery without angina pectoris; I65.29 Occlusion and stenosis of unspecified carotid artery; R13.10 Dysphagia, unspecified; W19.XXXA Unspecified fall, initial encounter; Y93.89 Activity, other specified; Y92.89 Other specified places as the place of occurrence of the external cause; Y99.8 Other external cause status; Z87.891 Personal history of nicotine dependence; Z95.1 Presence of aortocoronary bypass graft; Z86.73 Personal history of transient ischemic attack (TIA), and cerebral infarction without residual deficits
CPT/HCPCS: 36415; 70450; 70544; 70551; 71045; 74176; 74230; 80048; 80053; 80305; 81001; 81003; 82550; 83721; 83735; 83874; 83880; 84100; 84443; 84484; 85025; 85610; 85730; 87077; 87088; 87186; 92507; 92522; 92610; 92611; 93005; 94640; 94664; 97039; A4344; G0378; J0696; J1940; J2060; J2185; J3475; J3480; J3490; J7030